=== PATIENT | female | born 2000 | race Caucasian/White ===

== ENCOUNTER 2024-04-11 19:53 | Emergency (ER) | payer OTHER, BC, SELFPAY ==
[2024-04-11 20:00] VITALS: BP 132/84; PULSE 92; RESP 16; TEMP 37; O2SAT 98; BMI 38.8
--- NOTE | 2024-04-11 20:20 | CRLHL7_ITS ---
For Patients: As a result of the Cures Act, medical imaging exams and procedure reports are released immediately into your electronic medical record. You may view this report before your referring provider. If you have questions, please contact your health care provider. Indication: Injury while lifting heavy box. Technique: Right shoulder 3 views. Comparison: None. Findings: Bones: Alignment is normal. No fractures or bone lesions. Joint spaces: Unremarkable. The coracoclavicular and acromioclavicular intervals are maintained. Soft tissues: Unremarkable. Impression: No evidence of an acute bony abnormality. Dictated by Sander Fernandez MD @ 04/11/2024 9:33:42 PM (Electronically Signed)
--- NOTE | 2024-04-11 21:52 | ED_ITS ---
HPI - General Adult General Chief complaint: Shoulder Injury/Pain Stated complaint: R shoulder pain Time Seen by Provider: 04/11/24 20:27 History of Present Illness HPI narrative: ifting groceries at work, large frozen boxes?50lbs? Injury happened two weeks ago. Right Shoulder pain is not getting any better. Tylenol and ibuprofen not working. Pt has sensations to fingertips. 23-year-old woman presenting to the emergency depart with complaint of right shoulder pain. 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 Just does not seem to be getting any better. Admittedly she has not been really giving it a chance to rest. Ibuprofen acetaminophen do not seem to be helping anymore. She describes pain in the anterior and posterior aspects of the shoulder. Most pain seems to be elicited when she is reaching down in extension. Would be distressed to not be able to get back to work. Any weakness would seem to be elicited with reproduction of pain. Increasingly having trouble sleeping due to pain. Related Data Home Medications ?Medication ?Instructions ?Recorded ?Confirmed No Known Home Medications 04/11/24 05/01/24 Allergies Allergy/AdvReac Type Severity Reaction Status Date / Time No Known Drug Allergies Allergy Verified 05/01/24 08:27 Review of Systems Status of ROS: Reports: 6 or more systems reviewed and unremarkable except as noted in History and below [facility] Social History Non-prescribed substance use: denies use Exam Narrative: Exam Narrative: Pleasant. NAD. Neck is supple nontender. Vague reproduction of pain in the anterior upper shoulder deltoid though not really at the insertion. I do not see swelling or erythema. She does not have loss of muscle tone. Good strength though sore with resisted internal and external rotation. Neer's is negative. Soreness is elicited also with abduction and palpation along the supraspinatus. Appears to have full range of motion to abduction. External rotation to 40? or so and internal rotation to T10. Quite sore to palpation along the right periscapular musculature. Const: Vital Signs, click to edit/add: Vital Signs - 24 hr 04/11/24 20:00 Temperature 98.6 F Pulse Rate [Right Pulse Oximeter] 92 Respiratory Rate 16 Blood Pressure [Le ft Upper Arm] 132/84 Pulse Oximetry 98 Oxygen Delivery Nm thod Room Air Documenting provider has reviewed patient's vital signs: yes Course Vital Signs Vital signs: Initial Vital Signs Temperature 98.6 F 04/11/24 20:00 Temperature Source Tympanic 04/11/24 20:00 Pulse Rate 92 04/11/24 20:00 Pulse Rhythm Regular 04/11/24 20:00 Respiratory Rate 16 04/11/24 20:00 Blood Pressure 132/84 04/11/24 20:00 Blood Pressure Mean 100 04/11/24 20:00 Blood Pressure Position Sitting 04/11/24 20:00 Pulse Oximetry 98 04/11/24 20:00 Oxygen Delivery Method Room Air 04/11/24 20:00 Vital Signs Temperature 98.6 F 04/11/24 20:00 Pulse Rate 92 04/11/24 20:00 Respiratory Rate 16 04/11/24 20:00 Blood Pressure 132/84 04/11/24 20:00 Pulse Oximetry 98 04/11/24 20:00 Oxygen Delivery Method Room Air 04/11/24 20:00 Temperature 98.6 F 04/11/24 20:00 Pulse Rate 92 04/11/24 20:00 Respiratory Rate 16 04/11/24 20:00 Blood Pressure 132/84 04/11/24 20:00 Pulse Oximetry 98 04/11/24 20:00 Oxygen Delivery Method Room Air 04/11/24 20:00 Medical Decision Making MDM Narrative Medical decision making narrative: I think maybe has some involvement of injury of supraspinatus musculature or or meniscal. Would need to begin though with x-ray imaging which we can do here today. Suspect will need follow-up with MRI or other. X-ray of the right shoulder reviewed by me looks to be without bony abnormality and with maintained and normal AC joint. Indication: Injury while lifting heavy box. Technique: Right shoulder 3 views. Comparison: None. Findings: Bones: Alignment is normal. No fractures or bone lesions. Joint spaces: Unremarkable. The coracoclavicular and acromioclavicular intervals are maintained. Soft tissues: Unremarkable. Impression: No evidence of an acute bony abnormality. Regardless needs to give this a chance to rest. Providing an arm sling. Follow-up with ortho at this point See patient discharge plan for further discussion. Discharge Plan Discharge Clinical Impression: Injury of right rotator cuff Patient Disposition: Home w/ Parent or Adult Condition: Stable Additional Instructions: Wear this arm sling for support and comfort most of the time over this next week. Given the amount of pain you seem to be having, it might even be good wear loosely overnight and then prop your elbow/arm on a pillow. I think it just need to give it a rest. Ice packs as discussed to that area that hurts couple of times daily over the next few days might be beneficial. Would call tomorrow to schedule with orthopedics to be seen sometime over this next week. Phone #[phone]. I suppose sports medicine would be another option or if your primary care provider really has an interest in orthopedics, would consider them as well. See handout on rotator cuff injury and rhomboid strain. You seem to have reproducible pain in the supraspinatus and trapezius and rhomboid musculature. Can take up to 500 mg of naproxen 2 times daily. These can be combined with up to 1000 mg of acetaminophen per dose. I am prescribing if needed, some [place] from [facility]. Remember that each tablet of [place] contains 325 mg of acetaminophen. Also cyclobenzaprine as a ?muscle relaxer? from [facility] as well. Prescriptions: No Action No Known Home Medications Follow Up/Referrals: Provider,Not a Local [Primary Care Provider] - Stand Alone Forms: [employer] [employer] Info Instructions
== END 2024-04-11 22:53 | disposition home or self-care (01) ==
PROVIDERS: Emergency Provider Family Medicine
DX: S46.091A Other injury of muscle(s) and tendon(s) of the rotator cuff of right shoulder, initial encounter (principal)
CPT/HCPCS: 73030; 99283; 99284

== ENCOUNTER 2024-04-27 07:56 | Outpatient (CLI) | payer OTHER, BC, SELFPAY ==
--- NOTE | 2024-04-27 08:15 | CRLHL7_ITS ---
For Patients: As a result of the Century Cures Act, medical imaging exams and procedure reports are released immediately into your electronic medical record. You may view this report before your referring provider. If you have questions, please contact your health care provider. Indication: Right shoulder pain. Comparison: 04/11/2025 Procedure : Informed consent was obtained. The site was marked. Time-out was performed. The skin of the right shoulder was cleansed with ChloraPrep. A sterile drape was placed. 8 cc of 1 percent lidocaine was administered for superficial anesthesia. Subsequently a 22 gauge spinal needle was introduced into the right shoulder joint under intermittent fluoroscopic guidance. Injection of 2 cc nonionic Omnipaque 240 contrast confirmed intra-articular location. Subsequently 11 cc of dilute gadolinium were injected. The needle was removed and hemostasis achieved with direct pressure. A dressing was placed. The patient tolerated the procedure well without immediate complication and was immediately sent to MRI for imaging. Total fluoroscopy time 45 seconds. Impression: Successful fluoroscopically guided right shoulder arthrogram for MRI. Dictated by Cristian Jeffrey MD @ 04/27/2024 10:59:16 AM (Electronically Signed)
--- NOTE | 2024-04-27 09:15 | MR_ITS ---
[facility] [address] [address] Phone:?[phone] Fax:?[phone] Referring Physician Information: Rayshawn Rene M.D. [id number] [address] Phone:?[phone] Fax:?[phone] Patient:Kvng Corbin D.O.B:?2000 Sex:?Female Phone:?[phone] [facility] MRN:?[id number] Exam Date:?04/27/2024 EXAM: MR ARTHROGRAM OF THE RIGHT SHOULDER CLINICAL: Right shoulder injury. Evaluate for labral tear. COMPARISON: X-rays dated 04/11/2024. TECHNICAL: Exam performed after injection of gadolinium based contrast into the right shoulder. Multiplanar multisequence MRI of the right shoulder was obtained. SEDATION: None. CONTRAST: Intra-articular gadolinium based contrast. FINDINGS: Rotator cuff: Supraspinatus/Infraspinatus: There is moderate tendinosis of the distal supraspinatus tendon and mild tendinosis of the distal infraspinatus tendon without evidence of significant tendon tear. No significant fatty atrophy of the muscle bellies. Teres minor: No tendinopathy, tear or atrophy. Subscapularis: No tendinopathy, tear or atrophy. Injected contrast is noted within the superior aspect of the muscle. Bursae: Subacromial-subdeltoid: Mild bursal fluid. Subcoracoid: No significant bursal fluid. Coracoacromial arch: Acromion morphology: Type I. No os acromiale. Acromiohumeral space: Within normal limits. Coracohumeral space: Within normal limits. Biceps tendon, long head: Intraarticular and extraarticular segments are intact without rupture, tendinopathy or displacement. Glenohumeral joint: Contrast distends the joint capsule consistent with successful intra-articular injection. Articular cartilage: No osteochondral abnormalities. Capsule: No convincing adhesive capsulitis or capsular injury. Labrum: There is tearing of the posterior labrum seen on axial series 3 image 16-17. No additional labral tear identified. No perilabral cyst identified. Bones: No suspicious marrow signal alteration, fracture line or dislocation. Acromioclavicular joint: No acute injury, arthropathy, or inferior hypertrophy. IMPRESSION: 1. Tearing of the posterior labrum. 2. Moderate tendinosis of the distal supraspinatus tendon with mild tendinosis of the distal infraspinatus tendon. No significant rotator cuff tendon tear. 3. Mild fluid within the subacromial/subdeltoid bursa. 4. Normal appearance of the long head biceps tendon. No glenohumeral chondral defects or fracture. JCZ Electronically signed on 04/27/2024 3:15:00 PM by Ricardo Gaston D.O.
== END 2024-04-27 07:57 | disposition home or self-care (01) ==
LOC: RAD 07:57
PROVIDERS: PCP Nurse Practitioner Family; Visit Provider Orthopaedic Surgery
DX: M25.511 Pain in right shoulder (principal); S43.491A Other sprain of right shoulder joint, initial encounter; M75.101 Unspecified rotator cuff tear or rupture of right shoulder, not specified as traumatic; M75.51 Bursitis of right shoulder; S49.91XA Unspecified injury of right shoulder and upper arm, initial encounter
CPT/HCPCS: 23350; 73222; 77002; A9575; Q9966